=== PATIENT | female | born 1940 | race Caucasian/White ===

== ENCOUNTER 2023-08-28 09:53 | Day surgery (SDC) | payer MEDICARE, MEDICAID ==
[~2023-08-28] VITALS: Ht 172.7 cm; Wt 86.0 kg
[2023-08-28] VITALS (9 sets, daily range): BP systolic 114–172; BP diastolic 46–96; PULSE 57–72; RESP 13–21; TEMP 97.5; O2SAT 95–99
[2023-08-28] MEDS ORDERED: FURO40TA4 PO (10:27)
[2023-08-28] MEDS ORDERED: METO100T14 PO (10:27)
[2023-08-28] MEDS ORDERED: HYDR-3973 PO (10:28)
[2023-08-28] MEDS ORDERED: SACU1TAB PO (10:28)
[2023-08-28] MEDS ORDERED: DICL100T85 PO (10:28)
[2023-08-28] MEDS ORDERED: NIAC500C12 PO (10:28)
[2023-08-28] MEDS ORDERED: diphenhydrAMINE 25mg capsule PO PRN (10:45)
[2023-08-28 10:53] LABS: BASOPHILS # (AUTO) 0.1 X10'3 (0-0.2); BASOPHILS % (AUTO) 0.9 % (0-1); EOSINOPHILS # (AUTO) 0.2 X10'3 (0-0.9); EOSINOPHILS % (AUTO) 2.2 % (0-6); HEMATOCRIT 42.5 % (35.0-45.0); HEMOGLOBIN 14.5 g/dl (12.0-16.0); LYMPHOCYTES # (AUTO) 2.1 X10'3 (1.1-4.8); MEAN CORPUSCULAR HEMOGLOBIN 30.5 PG (27.0-31.0); MEAN CORPUSCULAR HGB CONC 34.2 g/dL (33.0-36.5); MEAN CORPUSCULAR VOLUME 89.1 FL (78-98); MEAN PLATELET VOLUME 7.6 FL (7.4-10.4); MONOCYTES # (AUTO) 1.2 X10'3 (0-0.9); MONOCYTES % (AUTO) 10.8 % (2-12); NEUTROPHILS # (AUTO) 7.3 X10'3 (1.8-7.7); NEUTROPHILS % (AUTO) 67.1 % (42-75); PLATELET COUNT 591 X10'3 (140-440); RED BLOOD COUNT 4.77 X10'6 (4.20-5.60); RED CELL DISTRIBUTION WIDTH 14.5 % (11.5-14.5); WHITE BLOOD COUNT 10.9 X10'3 (4.5-11.0)
[2023-08-28 11:00] LABS: APTT 28 SECONDS (22-32); PROTHROMBIN TIME 11.1 SECONDS (9.0-12.0)
[2023-08-28 11:08] LABS: ALBUMIN 3.4 G/DL (3.4-5.0); ANION GAP 12 (8-16); BLOOD UREA NITROGEN 24 MG/DL (7-18); BUN/CREATININE RATIO 23.8 (10.0-20.0); CALCIUM 9.2 MG/DL (8.5-10.1); CHLORIDE 103 MMOL/L (99-107); CHOL/HDL RATIO 5.1 (0.00-4.99); CHOLESTEROL 183 MG/DL (0-200); CREATININE 1.01 MG/DL (0.40-0.90); GLUCOSE 111 MG/DL (70-104); HDL CHOLESTEROL 36 MG/DL (35-60); LDL CHOLESTEROL 113 MG/DL (50-100); POTASSIUM 3.7 MMOL/L (3.5-5.1); SODIUM 140 MMOL/L (135-145); TOTAL CARBON DIOXIDE 24.7 MMOL/L (24-32); TRIGLYCERIDES 175 MG/DL (20-135); eCRCL 42 ML/MIN; eGFR 52 ML/MIN
[2023-08-28] MEDS: normal saline 1,000 ML IV SCH (11:19)
[2023-08-28] MEDS: diphenhydrAMINE 25mg capsule PO ONE (11:19)
[2023-08-28] MEDS: methylPREDNISolone sod succ 125mg/2ml vial IV ONE (11:21)
[2023-08-28] MEDS: LORazepam 0.5 MG tablet PO PRN (11:21)
[2023-08-28] MEDS: famotidine 20mg tablet PO ONE (11:30)
[2023-08-28] MEDS ORDERED: verapamil 2.5 mg/ml inj IV ONE (11:57)
[2023-08-28] MEDS ORDERED: heparin 1,000unit/ml 10ml vial 10 ML ONE (11:57)
[2023-08-28] MEDS ORDERED: midazolam 1 mg/ML 2ml injection ONE ×2 (11:57→13:08)
[2023-08-28] MEDS ORDERED: LIDOcaine 1% (10mg/ml) 2ml vial ONE (11:57)
[2023-08-28] MEDS ORDERED: iohexol 350MG/ML 100ml bottle IV ONE (11:57)
[2023-08-28] MEDS ORDERED: fentaNYL/PF 50MCG/1 ML 2ML syringe ONE (11:57)
[2023-08-28] MEDS ORDERED: nitroGLYCERIN 500mcg/5mL D5W 5 ML IV ONE (11:58)
[2023-08-28] MEDS ORDERED: LIDOcaine 1% 30ml preserv. free vial ONE (13:24)
[2023-08-28 13:32] LABS: ISTAT HGB ART 13.9 g/dl (12.0-16.0); ISTAT HGB MIX 14.3 g/dl (12.0-16.0); ISTAT Hct ART 41 %PCV (35-45); ISTAT Hct MIX 42 %PCV (35-45); ISTAT O2 SATURATION ARTERIAL 96 % (95-98); ISTAT O2 SATURATION MIX VENOUS 61 % (60-80); ISTAT SOURCE BLNK; ISTAT SOURCE VEN
[2023-08-28] MEDS ORDERED: HYDROcodone/acetaminophen 10/325mg tab PO PRN (14:25)
[2023-08-28] MEDS ORDERED: HYDROcodone/acetaminophen 5mg/325mg tablet PO PRN (14:25)
== END 2023-08-28 16:00 | disposition home or self-care (01) ==
LOC: SSTAY O 09:53
PROVIDERS: ATTEND Student in an Organized Health Care Education/Training Program
DX: I35.0 Nonrheumatic aortic (valve) stenosis (principal); I25.10 Atherosclerotic heart disease of native coronary artery without angina pectoris; I44.7 Left bundle-branch block, unspecified; I11.0 Hypertensive heart disease with heart failure; I50.9 Heart failure, unspecified; E03.9 Hypothyroidism, unspecified; I48.91 Unspecified atrial fibrillation; J44.9 Chronic obstructive pulmonary disease, unspecified; M10.9 Gout, unspecified; M81.0 Age-related osteoporosis without current pathological fracture; Z85.44 Personal history of malignant neoplasm of other female genital organs; Z79.899 Other long term (current) drug therapy; Z88.6 Allergy status to analgesic agent
CPT/HCPCS: 36415; 80048; 80061; 82803; 85014; 85025; 85610; 85730; 93005; 93456; 99152; 99153; J1644; J2250; J2919; J3010; J3490; J7030; Q0163; Q9967; A4314; A6258; A6402; A6449; C1751; C1760; C1769; C1894; J2930

== ENCOUNTER → 2023-10-25 | Outpatient (CLI) | payer MEDICARE, MEDICAID ==
[~2023-10-25] MED LIST: DICL100T85 PO; FURO40TA4 PO; HYDR-3973 PO; IODIXANOL 320 MG/ML INFUS..BTL 100ML IV ONE; METO100T14 PO; NIAC500C12 PO; SACU1TAB PO
[2023-10-25 11:26] LABS: BASOPHILS # (AUTO) 0.1 X10'3 (0-0.2); BASOPHILS % (AUTO) 0.8 % (0-1); EOSINOPHILS # (AUTO) 0.2 X10'3 (0-0.9); EOSINOPHILS % (AUTO) 1.8 % (0-6); HEMATOCRIT 46.2 % (35.0-45.0); HEMOGLOBIN 15.7 g/dl (12.0-16.0); LYMPHOCYTES # (AUTO) 2.3 X10'3 (1.1-4.8); LYMPHOCYTES % (AUTO) 25.6 % (21-51); MEAN CORPUSCULAR HEMOGLOBIN 30.5 PG (27.0-31.0); MEAN CORPUSCULAR VOLUME 89.6 FL (78-98); MONOCYTES # (AUTO) 0.9 X10'3 (0-0.9); MONOCYTES % (AUTO) 10.2 % (2-12); NEUTROPHILS # (AUTO) 5.5 X10'3 (1.8-7.7); NEUTROPHILS % (AUTO) 61.6 % (42-75); PLATELET COUNT 302 X10'3 (140-440); RED BLOOD COUNT 5.15 X10'6 (4.20-5.60); RED CELL DISTRIBUTION WIDTH 15.1 % (11.5-14.5)
[2023-10-25 11:47] LABS: APTT 27 SECONDS (22-32); INR 1.1 INR; PROTHROMBIN TIME 11.4 SECONDS (9.0-12.0)
[2023-10-25 11:48] LABS: ALANINE AMINOTRANSFERASE 35 U/L (12-78); ALBUMIN 3.7 G/DL (3.4-5.0); ALBUMIN/GLOBULIN RATIO 0.9 (1.1-1.5); ALKALINE PHOSPHATASE 77 IU/L (46-116); ANION GAP 10 (8-16); ASPARTATE AMINO TRANSFERASE 23 U/L (10-37); BILIRUBIN,TOTAL 1.3 MG/DL (0.1-1.0); BLOOD UREA NITROGEN 36 MG/DL (7-18); BUN/CREATININE RATIO 32.4 (10.0-20.0); CALCIUM 9.1 MG/DL (8.5-10.1); CHLORIDE 102 MMOL/L (99-107); CREATININE 1.11 MG/DL (0.40-0.90); GLUCOSE 105 MG/DL (70-104); POTASSIUM 3.5 MMOL/L (3.5-5.1); PRO BRAIN NATRIURETIC PEPTIDE 1300 PG/ML (0-450); SODIUM 137 MMOL/L (135-145); TOTAL CARBON DIOXIDE 25.2 MMOL/L (24-32); TOTAL PROTEIN 7.6 G/DL (6.4-8.2); eGFR 47 ML/MIN
== END | disposition home or self-care (01) ==
LOC: RAD 10:43
PROVIDERS: ATTEND Internal Medicine Cardiovascular Disease
DX: I71.21 Aneurysm of the ascending aorta, without rupture (principal); R06.02 Shortness of breath; I65.29 Occlusion and stenosis of unspecified carotid artery; I35.0 Nonrheumatic aortic (valve) stenosis; I77.1 Stricture of artery; I51.7 Cardiomegaly; Z90.49 Acquired absence of other specified parts of digestive tract; R91.8 Other nonspecific abnormal finding of lung field; D73.9 Disease of spleen, unspecified; E27.8 Other specified disorders of adrenal gland
CPT/HCPCS: 36415; 71046; 71275; 74174; 75572; 80053; 83880; 85025; 85610; 85730; Q9967

== ENCOUNTER 2024-01-11 07:08 | Inpatient (IN) | payer MEDICARE, MEDICAID ==
[2024-01-08 14:37] LABS: BILIRUBIN,URINE NEGATIVE (Neg); CLARITY,URINE CLEAR (Clear); COLOR,URINE YELLOW (Yellow); GLUCOSE, URINE NEGATIVE (Neg); KETONES,URINE TRACE mg/dl (Neg); LEUKOCYTE ESTERASE ,URINE NEGATIVE (Neg); NITRITES, URINE NEGATIVE (Neg); OCCULT BLOOD,URINE NEGATIVE (Neg); PROTEIN,URINE NEGATIVE (Neg); UROBILINOGEN,URINE 0.2 E.U/dL (0.2-1.0)
[2024-01-08 14:38] LABS: BASOPHILS # (AUTO) 0.1 X10'3 (0-0.2); BASOPHILS % (AUTO) 0.9 % (0-1); EOSINOPHILS # (AUTO) 0.4 X10'3 (0-0.9); EOSINOPHILS % (AUTO) 4.1 % (0-6); LYMPHOCYTES # (AUTO) 2.2 X10'3 (1.1-4.8); LYMPHOCYTES % (AUTO) 23.2 % (21-51); MEAN CORPUSCULAR HEMOGLOBIN 31.3 PG (27.0-31.0); MEAN CORPUSCULAR HGB CONC 33.2 g/dL (33.0-36.5); MEAN CORPUSCULAR VOLUME 94.4 FL (78-98); MEAN PLATELET VOLUME 7.7 FL (7.4-10.4); MONOCYTES # (AUTO) 0.9 X10'3 (0-0.9); MONOCYTES % (AUTO) 9.9 % (2-12); NEUTROPHILS % (AUTO) 61.9 % (42-75); PRE OP HEMATOCRIT 44.4 % (35.0-45.0); PRE OP HEMOGLOBIN 14.7 g/dL (12.0-16.0); PRE OP PLATELET COUNT 312 X10'3 (140-440); PRE OP WHITE BLOOD COUNT 9.6 10'3 (4.8-10.8); RED CELL DISTRIBUTION WIDTH 14.4 % (11.5-14.5)
[2024-01-08 14:44] LABS: UA COLLECTION TYPE CLN CATCH MIDSTREAM
[2024-01-08 14:50] LABS: PRE OP PROTIME 10.7 SECONDS (9.0-12.0)
[2024-01-08 14:59] LABS: ALBUMIN 3.5 G/DL (3.4-5.0); ALBUMIN/GLOBULIN RATIO 0.9 (1.1-1.5); ALKALINE PHOSPHATASE 75 IU/L (46-116); BLOOD UREA NITROGEN 32 MG/DL (7-18); BUN/CREATININE RATIO 28.8 (10.0-20.0); CALCIUM 9.4 MG/DL (8.5-10.1); CHLORIDE 107 MMOL/L (99-107); CREATININE 1.11 MG/DL (0.40-0.90); PRE OP ALT 27 U/L (30-65); PRE OP ANION GAP 6 (8-16); PRE OP AST 20 U/L (10-37); PRE OP BILIRUB, TOTAL 0.6 MG/DL (0.0-1.0); PRE OP GLUCOSE 105 MG/DL (70-104); PRE OP POTASSIUM 4.3 MMOL/L (3.4-5.1); PRE OP SODIUM 143 MMOL/L (135-145); PRO BRAIN NATRIURETIC PEPTIDE 3799 PG/ML (0-450); TOTAL CARBON DIOXIDE 30.5 MMOL/L (24-32); TOTAL PROTEIN 7.5 G/DL (6.4-8.2); eGFR 47 ML/MIN
[2024-01-11] VITALS (28 sets, daily range): BP systolic 90–166; BP diastolic 60–114; PULSE 80–120; RESP 11–22; TEMP 97.2–98.8; O2SAT 93–99
[~2024-01-11] VITALS: Ht 170.2 cm; Wt 90.9 kg
[2024-01-11] MEDS: cefazolin 2gm/D5W 100mL 100 ML IV ONE (05:30)
[2024-01-11] MEDS: clopidogrel 300mg tablet PO ONE (05:30)
[2024-01-11] MEDS: nitroPRUSSIDE (NIPRIDE) (200MCG/ML) 100ML Drip IV SCH (05:30)
[2024-01-11] MEDS: phenylephrine inj 50 MG in normal saline 250ml IV solN IV SCH (05:30)
[~2024-01-11 07:08] MED LIST changes: +CARI-515 PO; +DOCUMENT DATE & TIME OF BETA-BLOCKER PO ONE; +HYDR12.55 PO; -IODIXANOL 320 MG/ML INFUS..BTL 100ML IV ONE; +METO-384 PO; -METO100T14 PO; -NIAC500C12 PO; +ondansetron/PF 4mg/2ml inj IV PRN
[2024-01-11] MEDS: protamine sulfate 10mg/ml inj. ONE (07:49)
[2024-01-11] MEDS: famotidine 20mg tablet PO ONE (08:22)
[2024-01-11] MEDS: ringers solution, lacted 1,000 ML IV SCH (08:26)
[2024-01-11] MEDS: vancomycin 1,500 MG in NS 300ml IV soln IV ONE (08:39)
[2024-01-11] MEDS: aspirin 325mg tablet PO ONE (09:00)
[2024-01-11] MEDS ORDERED: LIDOcaine 1% (10mg/ml) 2ml vial ONE (10:05)
[2024-01-11] MEDS ORDERED: sevoflurane 250ml liquid IH ONE (10:20)
[2024-01-11] MEDS ORDERED: fentaNYL/PF 50MCG/1 ML 2ML syringe ONE (10:26)
[2024-01-11] MEDS ORDERED: midazolam 1 mg/ML 2ml injection ONE (10:26)
[2024-01-11] MEDS ORDERED: propofol inj 20 ML IV ONE (10:27)
[2024-01-11] MEDS ORDERED: LIDOcaine 1%/PF 5ML 10 MG/ML VIAL ONE (10:27)
[2024-01-11] MEDS ORDERED: iohexol 350MG/ML 100ml bottle IV ONE (10:29)
[2024-01-11] MEDS ORDERED: heparin 1,000 UNITS/NS 500ml 1,500 ML ONE (10:29)
[2024-01-11] MEDS ORDERED: HYDROchlorothiazide 12.5mg capsule PO PRN (10:45)
[2024-01-11] MEDS ORDERED: DICLOFENAC SODIUM 100 MG PO PRN (10:45)
[2024-01-11] MEDS ORDERED: heparin 1,000unit/ml 10ml vial 10 ML ONE (11:12)
[2024-01-11] MEDS ORDERED: dextrose 5% water 500ml 500 ML ONE (11:18)
[2024-01-11] MEDS ORDERED: labetalol 20mg/4ml (5mg/ml) syringe IV PRN ×2 (11:30→12:00)
[2024-01-11] MEDS ORDERED: ondansetron/PF 4mg/2ml inj IV PRN ×2 (11:30→12:00)
[2024-01-11] MEDS ORDERED: enalaprilat dihydrate 2.5mg/2ml vial IV PRN (11:30)
[2024-01-11] MEDS ORDERED: ringers solution, lacted 1,000 ML IV SCH (11:30)
[2024-01-11] MEDS ORDERED: morphine 2 MG/ML inj. syringe IV PRN (11:30)
[2024-01-11] MEDS ORDERED: meperidine/PF 25mg/ml syringe IV PRN ×2 (11:30)
[2024-01-11] MEDS ORDERED: proCHLORperazine 10 MG/2 ml inj IV PRN ×2 (11:30→12:00)
[2024-01-11] MEDS ORDERED: potassium Cl 20 mEq SR tablet PO PRN (12:00)
[2024-01-11] MEDS ORDERED: ALPRAZolam 0.25mg tablet PO PRN (12:00)
[2024-01-11] MEDS ORDERED: magnesium sulf-water 4G/100mL 100 ML IV PRN (12:00)
[2024-01-11] MEDS ORDERED: magnesium sulf-water 2g/50mL 50 ML IV PRN (12:00)
[2024-01-11] MEDS ORDERED: hydrALAZINE 20mg/ml inj. IV PRN (12:00)
[2024-01-11] MEDS ORDERED: potassium CL 10mEq/100ml bag 100 ML IV PRN (12:00)
[2024-01-11] MEDS ORDERED: potassium Cl 40MEQ/1/2NS 520ml 520 ML IV PRN (12:00)
[2024-01-11] MEDS ORDERED: potassium Cl 20mEq/100mL bag 100 ML IV PRN (12:00)
[2024-01-11] MEDS ORDERED: pantoprazole 40mg Tablet.DR PO PRN (12:00)
[2024-01-11] MEDS ORDERED: docusate sod 100mg capsule PO PRN (12:00)
[2024-01-11] MEDS ORDERED: diphenhydrAMINE 25mg capsule PO PRN (12:00)
[2024-01-11] MEDS ORDERED: potassium Cl 40MEQ/270ML bag 250 ML IV PRN (12:00)
[2024-01-11] MEDS: meperidine/PF 25mg/ml syringe IV PRN (13:07)
[2024-01-11] MEDS: morphine 4 MG/ML inj SYRINge IV PRN (13:17)
[2024-01-11] MEDS: normal saline 1000ml 1,000 ML IV SCH (13:18)
[2024-01-11] MEDS: HYDROcodone/acetaminophen 10/325mg tab PO PRN (15:54)
[2024-01-11] MEDS: ceFAZolin 1GM/D5W- ADD-VANTAGE 50 ML IV SCH (15:56)
[2024-01-11] MEDS: sod chloride 0.9% 10ml flush syringe IV SCH (16:00)
[2024-01-11] MEDS: vancomycin/NS 1 GM ADD-VANTAGE 250 ML IV SCH (20:00)
[2024-01-11] MEDS: sacubitril/valsartan 24mg-26mg tablet PO SCH (21:16)
[2024-01-12 02:00] VITALS: BP 102/68; PULSE 85; RESP 14; TEMP 97.2; O2SAT 92
[2024-01-12 05:38] LABS: BASOPHILS # (AUTO) 0.1 X10'3 (0-0.2); BASOPHILS % (AUTO) 0.5 % (0-1); EOSINOPHILS % (AUTO) 0.2 % (0-6); HEMATOCRIT 38.2 % (35.0-45.0); HEMOGLOBIN 12.6 g/dl (12.0-16.0); LYMPHOCYTES # (AUTO) 1.1 X10'3 (1.1-4.8); LYMPHOCYTES % (AUTO) 10.9 % (21-51); MEAN CORPUSCULAR HGB CONC 32.9 g/dL (33.0-36.5); MEAN CORPUSCULAR VOLUME 94.3 FL (78-98); MEAN PLATELET VOLUME 8.2 FL (7.4-10.4); MONOCYTES # (AUTO) 0.9 X10'3 (0-0.9); MONOCYTES % (AUTO) 9.5 % (2-12); NEUTROPHILS # (AUTO) 7.9 X10'3 (1.8-7.7); NEUTROPHILS % (AUTO) 78.9 % (42-75); PLATELET COUNT 233 X10'3 (140-440); RED BLOOD COUNT 4.05 X10'6 (4.20-5.60); RED CELL DISTRIBUTION WIDTH 14.3 % (11.5-14.5)
[2024-01-12 06:00] VITALS: BP 108/64; PULSE 69; RESP 12; TEMP 97.2; O2SAT 99
[2024-01-12 06:18] LABS: ALANINE AMINOTRANSFERASE 21 U/L (12-78); ALBUMIN/GLOBULIN RATIO 0.9 (1.1-1.5); ALKALINE PHOSPHATASE 64 IU/L (46-116); ANION GAP 10 (8-16); ASPARTATE AMINO TRANSFERASE 22 U/L (10-37); BILIRUBIN,TOTAL 0.6 MG/DL (0.1-1.0); BLOOD UREA NITROGEN 21 MG/DL (7-18); BUN/CREATININE RATIO 32.3 (10.0-20.0); CALCIUM 8.7 MG/DL (8.5-10.1); CHLORIDE 107 MMOL/L (99-107); CREATININE 0.65 MG/DL (0.40-0.90); GLUCOSE 92 MG/DL (70-104); MAGNESIUM 1.9 MG/DL (1.5-2.4); POTASSIUM 3.8 MMOL/L (3.5-5.1); PRO BRAIN NATRIURETIC PEPTIDE 4677 PG/ML (0-450); SODIUM 140 MMOL/L (135-145); TOTAL CARBON DIOXIDE 23.1 MMOL/L (24-32); TOTAL PROTEIN 6.4 G/DL (6.4-8.2); eCRCL 63 ML/MIN; eGFR 87 ML/MIN
[2024-01-12] MEDS: furosemide 40mg tablet PO SCH (07:49)
[2024-01-12] MEDS: aspirin 81mg tab.chew PO SCH (07:49)
[2024-01-12] MEDS: metoprolol succinate 25mg (24-HOUR) SR. Tablet PO SCH (07:49)
[2024-01-12] MEDS ORDERED: ASPI-1265 PO (12:48)
== END 2024-01-12 15:00 | disposition home or self-care (01) | DRG 266 ==
LOC: PAS IN 07:08 → EDSTATUS 09:30 → PCU 3S 14:15
PROVIDERS: ADMIT Internal Medicine Cardiovascular Disease; ATTEND Internal Medicine Cardiovascular Disease
PROC: B41D1ZZ Fluoroscopy of Aorta and Bilateral Lower Extremity Arteries using Low Osmolar Contrast (ICD-10-PCS; 2024-01-11)
PROC: 03HY32Z Insertion of Monitoring Device into Upper Artery, Percutaneous Approach (ICD-10-PCS; 2024-01-11)
PROC: 02RF38Z Replacement of Aortic Valve with Zooplastic Tissue, Percutaneous Approach (ICD-10-PCS; principal; 2024-01-11 10:20)
DX: I35.0 Nonrheumatic aortic (valve) stenosis (principal); Z00.6 Encounter for examination for normal comparison and control in clinical research program; I50.23 Acute on chronic systolic (congestive) heart failure; I11.0 Hypertensive heart disease with heart failure; I48.91 Unspecified atrial fibrillation; Z88.6 Allergy status to analgesic agent; Z91.041 Radiographic dye allergy status
CPT/HCPCS: 33361; 36415; 71045; 71046; 76937; 80053; 81003; 82948; 83735; 83880; 85025; 85347; 85610; 85730; 86885; 86900; 86901; 86920; 87081; 93005; 93308; A4615; A4618; A6258; A6449; C1756; C1760; C1769; C1894; G0378; J0690; J1100; J1644; J2175; J2250; J2270; J2371; J2704; J2720; J3010; J3370; J3490; J7030; J7040; J7050; J7060; J7120; Q9967